=== PATIENT | female | born 1955 ===

== ENCOUNTER 2025-05-31 10:04 | Outpatient (CLI) | payer OTHER ==
[2025-05-31 11:18] LABS: BASO % 0.5 % (0.1-1.2); EOS # 0.28 (0.04-0.54); EOS % 3.6 % (0.7-7.0); LYMPH # 3.00 (1.18-3.74); LYMPH % 38.7 % (19.3-53.1); MEAN PLATELET VOLUME 11.70 fl (9.4-12.4); MONO # 0.48 (0.24-0.82); MONO % 6.2 % (4.7-12.5); NEUT # 3.93 (1.56-6.13); NEUT % 50.7 % (34.0-71.1); RED CELL DISTRIBUTION WIDTH 12.5 % (11.6-14.4)
[2025-05-31 11:19] LABS: URINE APPEARANCE Turbid; URINE BILIRRUBIN Negative (NEGATIVE); URINE BLOOD Trace; URINE COLOR Yellow; URINE GLUCOSE Negative (NEGATIVE); URINE KETONE Negative (NEGATIVE); URINE LEUKOCYTE Small; URINE NITRATE Negative; URINE PROTEIN Negative (NEGATIVE); URINE UROBILINOGEN 1.0 E.U./dl
[2025-05-31 11:24] LABS: URINE BACTERIA 139.2 uL (0.0-1933); URINE EPITHELIAL CELLS 17.9 uL (0.0-38.8); URINE RBC 50.0 uL (0.0-20.8); URINE WBC 13.3 uL (0.0-23.2)
[2025-05-31 11:25] LABS: URINE CAST 0.00 uL (0.0-1.40)
[2025-05-31 11:41] LABS: INR 0.96
[2025-05-31 12:14] LABS: ALT/SGPT 23.0 U/L (12-78); AST/SGOT 16.0 U/L (15-37); BILIRUBIN TOTAL 0.56 mg/dL (0.3-1.2); BUN CREA RATIO 27.0 (7.0-25.0); CREATININE SERUM 0.6 mg/dL (0.55-1.02); GFR 99.12; GLOBULINA 3.2 G/DL (2.4-3.5); GLUCOSE FASTING 95.0 mg/dL (65-100); OSMOLALITY SERUM 292.0 MOSM/KG (275-295)
[2025-05-31] MEDS ORDERED: ROSUVASTATIN CA10 MG PO (12:36)
[2025-05-31] MEDS ORDERED: DORZOLAMIDE HCL10 ML OP (12:36)
[2025-05-31] MEDS ORDERED: LATANOPROST2.5 ML OP (12:37)
== END 2025-05-31 13:36 | disposition home or self-care (01) ==
LOC: LAB 10:04
PROVIDERS: ATTEND Surgery
DX: E21.0 Primary hyperparathyroidism (principal); Z01.82 Encounter for allergy testing; Z01.812 Encounter for preprocedural laboratory examination

== ENCOUNTER 2025-05-31 10:45 | Inpatient (IN) | payer OTHER ==
[~2025-05-31] VITALS: Ht 154.9 cm; Wt 62.6 kg
[2025-05-31] MEDS ORDERED: DORZOLAMIDE HCL10 ML OP (12:36)
[2025-05-31] MEDS ORDERED: ROSUVASTATIN CA10 MG PO (12:36)
[2025-05-31] MEDS ORDERED: LATANOPROST2.5 ML OP (12:37)
[2025-05-31 12:39] VITALS: BP 97/64
[2025-06-06] MEDS ORDERED: DEXAMETHASONE SODIUM PHOSPHATE 4 MG/ML VIAL ONE (07:41)
[2025-06-06] MEDS ORDERED: DEXAMETHASONE SODIUM PHOSPHATE 4 MG/ML VIAL IV SCH (08:15)
[2025-06-06] MEDS ORDERED: CEFAZOLIN SODIUM 1,000 MG VIAL ONE (09:04)
[2025-06-06] MEDS ORDERED: ONDANSETRON HCL 2 MG/ML VIAL IV PRN (09:45)
[2025-06-06] MEDS ORDERED: ENALAPRILAT DIHYDRATE 1.25 MG/ML VIAL IV PRN (09:45)
[2025-06-06 14:49] VITALS: BP 146/57; O2SAT 94
[2025-06-06] MEDS ORDERED: MAG HYDROX/ALUMINUM HYD/SIMETH 30 ML BLIST.PACK PO ONE (16:13)
[2025-06-06 16:35] VITALS: BP 146/75; O2SAT 95
[2025-06-06] MEDS ORDERED: CYCLOBENZAPRINE HCL 5 MG TABLET PO SCH (17:00)
[2025-06-06] MEDS ORDERED: ACETAMINOPHEN 500 MG GEL..CAP PO SCH (17:00)
[2025-06-06] MEDS ORDERED: TRAMADOL HCL 50 MG TABLET PO SCH (17:00)
[2025-06-06] MEDS ORDERED: DIPHENHYDRAMINE HCL 75 MG,LIDOCAINE HCL 30 ML,MAG HYDROX/ALUMINUM HYD/SIMETH 30 ML PO SCH (17:00)
[2025-06-06] MEDS ORDERED: PANTOPRAZOLE SODIUM 40 MG/VIAL VIAL IV PUSH SCH (21:00)
[2025-06-06 23:58] VITALS: BP 121/62; O2SAT 96
[2025-06-07 08:00] VITALS: BP 114/74; O2SAT 95
[2025-06-07] MEDS ORDERED: ROSUVASTATIN CALCIUM 10 MG TABLET PO SCH (09:00)
== END 2025-06-07 15:25 | disposition home or self-care (01) | DRG 627 ==
LOC: EDUNIT# 10:45 → O/R 06-06 06:00 → SURH 06-06 06:00
PROVIDERS: ADMIT Surgery; ATTEND Surgery
PROC: 0GBM0ZZ Excision of Left Superior Parathyroid Gland, Open Approach (ICD-10-PCS; 2025-06-06)
PROC: 0GTG0ZZ Resection of Left Thyroid Gland Lobe, Open Approach (ICD-10-PCS; principal; 2025-06-06 07:00)
DX: D35.1 Benign neoplasm of parathyroid gland (principal); E04.2 Nontoxic multinodular goiter; E21.0 Primary hyperparathyroidism

== ENCOUNTER 2025-06-11 11:18 | Inpatient (IN) | payer OTHER ==
[~2025-06-11] VITALS: Ht 157.5 cm; Wt 62.6 kg
[~2025-06-11 11:18] MED LIST: DORZOLAMIDE HCL10 ML OP; LATANOPROST2.5 ML OP; ROSUVASTATIN CA10 MG PO
[2025-06-11] MEDS ORDERED: CALCIUM CARBONATE/VITAMIN D3 1 TAB TABLET PO ONE (14:45)
[2025-06-11] MEDS ORDERED: ONDANSETRON HCL 2 MG/ML VIAL IV ONE (14:45)
[2025-06-11] MEDS ORDERED: 0.9 % SODIUM CHLORIDE 1,000 ML IV ONE (14:45)
[2025-06-11] MEDS ORDERED: LACTOBACILLUS ACIDOPHILUS 1 CAP CAP PO ONE (14:45)
[2025-06-11] MEDS ORDERED: FAMOTIDINE/PF 20 MG/2 ML VIAL IV ONE (14:45)
[2025-06-11 15:54] LABS: BASO % 0.2 % (0.1-1.2); EOS # 0.25 (0.04-0.54); EOS % 2.8 % (0.7-7.0); LYMPH # 3.25 (1.18-3.74); LYMPH % 36.3 % (19.3-53.1); MEAN PLATELET VOLUME 11.00 fl (9.4-12.4); MONO # 0.51 (0.24-0.82); MONO % 5.7 % (4.7-12.5); NEUT # 4.90 (1.56-6.13); NEUT % 54.7 % (34.0-71.1); RED CELL DISTRIBUTION WIDTH 12.5 % (11.6-14.4)
--- NOTE | 2025-06-11 15:55 | NUR ---
SE ORIENTA A PACIENTE SOBRE [place] MEDICO, REFIERE ENTENDER. SE REALIZAN MUESTRAS DE LABORATORIO BAJO MEDIDAS ASEPTICAS. SE ADMINISTRAN MEDICAMENTOS KESHIA ORDEN MEDICA. SE COORD[address] CT. PENDIENTE RE-EVALUACION MEDICA.
[2025-06-11 16:23] LABS: ALT/SGPT 21.0 U/L (12-78); AST/SGOT 16.0 U/L (15-37); BILIRUBIN TOTAL 0.62 mg/dL (0.3-1.2); BILIRUBIN,CONJUGATED 0.15 mg/dL (0.0-0.2); BUN CREA RATIO 17.0 (7.0-25.0); CREATININE SERUM 0.69 mg/dL (0.55-1.02); GFR 84.36; GLOBULINA 3.0 G/DL (2.4-3.5); GLUCOSE FASTING 123.0 mg/dL (65-100); OSMOLALITY SERUM 290.0 MOSM/KG (275-295)
[2025-06-11 16:44] LABS: COVID-19 AG NEGATIVE (NEGATIVE)
--- NOTE | 2025-06-11 16:46 | NUR ---
PACIENTE ALERTA Y ORIENTADA X 3 ESFERAS LA CUAL INDICA QUE PRESENTA DIARREAS. INDICA QUE FUE OPERADA POR CIRILO.SYLVIA EL 06/05/25.
[2025-06-11] MEDS ORDERED: ATORVASTATIN CALCIUM 10 MG TABLET PO SCH (19:16)
[2025-06-11] MEDS ORDERED: PANTOPRAZOLE SODIUM 40 MG in 0.9 % SODIUM CHLORIDE 8 ML IV PUSH SCH (19:21)
[2025-06-11] MEDS ORDERED: 0.9 % SODIUM CHLORIDE 1,000 ML IV SCH (19:30)
[2025-06-11] MEDS ORDERED: ACETAMINOPHEN 325 MG TABLET PO PRN (19:30)
[2025-06-11] MEDS ORDERED: KETOROLAC TROMETHAMINE 15 MG VIAL IV PRN (19:30)
[2025-06-11 21:22] LABS: ALT/SGPT 20.0 U/L (12-78); AST/SGOT 16.0 U/L (15-37); BILIRUBIN TOTAL 0.4 mg/dL (0.3-1.2); BUN CREA RATIO 19.0 (7.0-25.0); CREATININE SERUM 0.64 mg/dL (0.55-1.02); GFR 92.01; GLOBULINA 3.3 G/DL (2.4-3.5); GLUCOSE FASTING 105.0 mg/dL (65-100); OSMOLALITY SERUM 289.0 MOSM/KG (275-295)
[2025-06-11 21:52] LABS: URINE APPEARANCE Turbid; URINE BILIRRUBIN Negative (NEGATIVE); URINE BLOOD Negative; URINE COLOR Yellow; URINE GLUCOSE Negative (NEGATIVE); URINE KETONE Negative (NEGATIVE); URINE LEUKOCYTE Negative; URINE NITRATE Negative; URINE PROTEIN Trace (NEGATIVE); URINE UROBILINOGEN 1.0 E.U./dl
[2025-06-11 21:57] LABS: URINE BACTERIA 38.3 uL (0.0-1933); URINE EPITHELIAL CELLS 5.6 uL (0.0-38.8); URINE RBC 63.9 uL (0.0-20.8); URINE WBC 8.1 uL (0.0-23.2)
[2025-06-11 22:01] LABS: URINE CAST 0.29 uL (0.0-1.40)
[2025-06-11 22:03] LABS: T4 FREE 1.02 NG/ML (0.76-1.46)
[2025-06-12 01:38] VITALS: BP 115/73; O2SAT 96
[2025-06-12] MEDS ORDERED: KETOROLAC TROMETHAMINE 30 MG VIAL IV PRN (07:00)
[2025-06-12 07:28] LABS: ALT/SGPT 19.0 U/L (12-78); AST/SGOT 14.0 U/L (15-37); BILIRUBIN TOTAL 0.65 mg/dL (0.3-1.2); BUN CREA RATIO 20.0 (7.0-25.0); CREATININE SERUM 0.59 mg/dL (0.55-1.02); GFR 101.06; GLOBULINA 2.6 G/DL (2.4-3.5); GLUCOSE FASTING 87.0 mg/dL (65-100); OSMOLALITY SERUM 286.0 MOSM/KG (275-295)
[2025-06-12 08:00] VITALS: BP 134/64; O2SAT 95
[2025-06-12 15:30] VITALS: BP 130/80; O2SAT 96
[2025-06-13 01:15] VITALS: BP 110/74; O2SAT 97
[2025-06-13 06:49] LABS: BASO % 0.7 % (0.1-1.2); EOS # 0.33 (0.04-0.54); EOS % 4.4 % (0.7-7.0); LYMPH # 2.47 (1.18-3.74); LYMPH % 32.7 % (19.3-53.1); MEAN PLATELET VOLUME 11.30 fl (9.4-12.4); MONO # 0.42 (0.24-0.82); MONO % 5.6 % (4.7-12.5); NEUT # 4.26 (1.56-6.13); NEUT % 56.2 % (34.0-71.1); RED CELL DISTRIBUTION WIDTH 12.7 % (11.6-14.4)
[2025-06-13 07:23] LABS: ALT/SGPT 21.0 U/L (12-78); AST/SGOT 13.0 U/L (15-37); BILIRUBIN TOTAL 0.43 mg/dL (0.3-1.2); BUN CREA RATIO 25.0 (7.0-25.0); CREATININE SERUM 0.64 mg/dL (0.55-1.02); GFR 92.01; GLOBULINA 2.9 G/DL (2.4-3.5); GLUCOSE FASTING 89.0 mg/dL (65-100); OSMOLALITY SERUM 287.0 MOSM/KG (275-295)
[2025-06-13 09:01] VITALS: BP 95/60; O2SAT 97
== END 2025-06-13 16:01 | disposition home or self-care (01) | DRG 392 ==
LOC: ER 11:18 → SEC-K 19:19 → SURG 19:19
PROVIDERS: General Practice; ADMIT Internal Medicine; ATTEND Internal Medicine
PROC: BW21ZZZ Computerized Tomography (CT Scan) of Abdomen and Pelvis (ICD-10-PCS; principal; 2025-06-11)
DX: K52.9 Noninfective gastroenteritis and colitis, unspecified (principal); K90.49 Malabsorption due to intolerance, not elsewhere classified; E87.8 Other disorders of electrolyte and fluid balance, not elsewhere classified; R20.0 Anesthesia of skin; E21.0 Primary hyperparathyroidism; Z98.890 Other specified postprocedural states; Z90.89 Acquired absence of other organs